=== PATIENT | female | born 1965 | race African-American/Black ===

== ENCOUNTER 2017-04-17 17:15 | Emergency (ER) | payer SELFPAY ==
[2017-04-17] MEDS: IBUPROFEN 800 MG TABLET. PO ×2 (18:25)
== END 2017-04-17 18:50 | disposition home or self-care (01) ==
LOC: ER 17:15
DX: S16.1XXA Strain of muscle, fascia and tendon at neck level, initial encounter (principal); V49.9XXA Car occupant (driver) (passenger) injured in unspecified traffic accident, initial encounter; Y93.89 Activity, other specified; Y99.8 Other external cause status; Y92.488 Other paved roadways as the place of occurrence of the external cause
CPT/HCPCS: 72040; 99284

== ENCOUNTER 2017-10-21 17:50 | Emergency (ER) | payer OTHER ==
[~2017-10-21] VITALS: Ht 170.2 cm; Wt 79.4 kg
[~2017-10-21 17:50] MED LIST: HYDR-971 PO; IBUP-1060 PO
[2017-10-21 17:55] VITALS: BP 168/107
[2017-10-21] MEDS ORDERED: TRAM50TA PO (18:16)
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
== END 2017-10-21 18:25 | disposition home or self-care (01) ==
LOC: ER 17:50
DX: M25.562 Pain in left knee (principal)
CPT/HCPCS: 99284

== ENCOUNTER 2017-10-23 09:49 | Emergency (ER) | payer OTHER ==
[~2017-10-23] VITALS: Ht 170.2 cm; Wt 77.1 kg
[~2017-10-23 09:49] MED LIST changes: +TRAM50TA PO
[2017-10-23] MEDS ORDERED: HYDR-971 PO (10:12)
[2017-10-23 10:16] VITALS: BP 134/62
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
== END 2017-10-23 10:35 | disposition home or self-care (01) ==
LOC: ER 09:49
DX: M25.562 Pain in left knee (principal)
CPT/HCPCS: 99283